=== PATIENT | female | born 1955 | race African-American/Black ===

== ENCOUNTER 2023-01-11 18:14 | Inpatient (IN) | payer OTHER, MEDICAID ==
[~2023-01-11] VITALS: Ht 157.5 cm; Wt 63.0 kg
[2023-01-11 18:50] VITALS: BP_SYST 91
[2023-01-11] MEDS ORDERED: ONDANSETRON HCL 4 MG/2 ML VIAL IVP ONE (19:00)
[2023-01-11] MEDS ORDERED: NACL 0.9% 1,000 ML IV ONE (19:00)
[2023-01-11] MEDS ORDERED: KETOROLAC TROMETHAMINE 30 MG VIAL IVP ONE (19:00)
--- NOTE | 2023-01-11 19:00 | NUR ---
Note beto in ED - 01/11/23 at 2151 by GAYATHRI Placed in room 2 . Placed on cardiac specialist, blood pressure machine and pulse oximeter. To gown for exam. Side rails up. Report given to Yung PALACIOS(reg).
--- NOTE | 2023-01-11 19:00 | NUR ---
Placed in room 2 by Yaniv . Placed on cardiac specialist, blood pressure machine and pulse oximeter. To gown for exam. Side rails up. Report given to Yung PALACIOS(reg).
[2023-01-11 19:38] LABS: HEMATOCRIT 28.7 % (36-48); HEMOGLOBIN 9.3 g/dL (12.0-16.0); MEAN CORPUSCULAR HEMOGLOBIN 25 pg (27-31); MEAN CORPUSCULAR HGB CONC 32 % (32-36); MEAN CORPUSCULAR VOLUME 77 fL (79.0-98.0); PLATELET COUNT (AUTO) 512 K/uL (130-430); RED BLOOD CELL COUNT(AUTO) 3.71 MIL/uL (4.2-6.2); RED CELL DISTRIBUTION WIDTH 18.9 % (9.0-15.0); WHITE BLOOD COUNT (AUTO) 22.9 K/uL (4.8-10.8)
[2023-01-11 19:55] LABS: PROTHROMBIN TIME 10.2 SECS (9.5-12.5)
[2023-01-11 20:08] LABS: ALANINE AMINOTRANSFERASE 10 U/L (12-78); ALBUMIN 2.1 g/dL (3.4-4.8); ANION GAP 9 (5-15); ASPARTATE AMINOTRANSFERASE 22 U/L (10-37); CHLORIDE 101 mmol/L (98-107); CREATININE 1.05 mg/dL (0.55-1.30); GFR AFRICAN AMERICAN 67 mL/min (>90); GLUCOSE 119 mg/dL (70-99); TOTAL BILIRUBIN 0.7 mg/dL (0.0-1.0); UREA NITROGEN, BLOOD 26 mg/dL (8-21)
[2023-01-11 20:12] LABS: CALCIUM 14.2 mg/dL (8.4-11.0)
[2023-01-11 20:20] LABS: BAND % (MANUAL) 1 % (0-6); BASOPHILS % (MANUAL) 0 % (0-2); EOSINOPHILS % (MANUAL) 1 % (0-7); LYMPHOCYTES % (MANUAL) 15 % (20-46); MONOCYTES % (MANUAL) 11 % (0-11)
[2023-01-11] MEDS ORDERED: POTASSIUM CHLORIDE 20 MEQ/PKT PACKET PO ONE (20:30)
--- NOTE | 2023-01-11 20:51 | NUR ---
IVF NS 1000 ml bolus given; followed with Zofran 8 mg IVP, Toradol 30 mg IVP, & KCL 40 meq PO.
[2023-01-11] MEDS ORDERED: PIPERACILLIN/TAZO 3.375/DEX-IS 50 ML IV ONE (21:30)
--- NOTE | 2023-01-11 21:49 | NUR ---
Admit bed requested Patient will be admitted to care of Dr.Singh Ledbetter Admitted to TELE unit. Diagnosis ASPIRATION PNEUMONIA Inpatient (Yes or No) YES Observation (Yes or No) NO Orientation concerns or request close to nursing station (Yes or No) NO Covid Status N/A On vent or bipap NO Isolation requirements NO Needs a sitter NO From Home (Yes or if No enter name of facility) YES Requires Dialysis (Yes or No) NO Med Rec Completed (Yes of No) YES
[2023-01-11] MEDS ORDERED: ZOLPIDEM TARTRATE 5 MG TABLET PO PRN (22:00)
[2023-01-11] MEDS ORDERED: ACETAMINOPHEN 325 MG TABLET PO PRN (22:00)
[2023-01-11] MEDS ORDERED: IPRATROPIUM/ALBUTEROL SULFATE 3 ML AMPUL.NEB (DUONEB) INH PRN (22:00)
[2023-01-11] MEDS ORDERED: POTASSIUM CHLORIDE 20 MEQ TAB.PRT.SR PO PRN (22:00)
[2023-01-11] MEDS ORDERED: MORPHINE 2 MG/ML INJ. SYRINGE IVP PRN (22:00)
[2023-01-11] MEDS ORDERED: DOCUSATE SODIUM 100 MG CAPSULE PO PRN (22:00)
[2023-01-11] MEDS ORDERED: NALOXONE HCL 0.4 MG/ML AMP (NARCAN) IVP PRN ×2 (22:00)
[2023-01-11] MEDS ORDERED: MAGNESIUM SULFATE 50 ML IV PRN (22:00)
[2023-01-11] MEDS ORDERED: MUPIROCIN 2% TOPICAL OINTMENT 22 GM NS PRN (22:00)
[2023-01-11] MEDS ORDERED: FOLI-43 PO (22:09)
[2023-01-11] MEDS ORDERED: IBUP-1970 PO (22:09)
[2023-01-11] MEDS ORDERED: MAGN400T10 PO (22:09)
[2023-01-11] MEDS ORDERED: METH-634 PO (22:09)
[2023-01-11] MEDS ORDERED: SERT50TA PO (22:09)
[2023-01-11] MEDS ORDERED: ACET-2634 PO (22:09)
[2023-01-11] MEDS ORDERED: LIP40 PO (22:09)
[2023-01-11] MEDS ORDERED: HYDR-3698 PO (22:09)
[2023-01-11] MEDS ORDERED: VARE0.5T6 PO (22:09)
--- NOTE | 2023-01-11 22:09 | NUR ---
Medication reconciliation completed with information provided by family member at the bedside. Any prior medication reconciliation on file was reviewed and corrected.
[2023-01-11] MEDS ORDERED: PIPERACILLIN/TAZOBACTAM 3.375 GM/VIAL (ZOSYN) IV ONE (22:47)
[2023-01-11] MEDS: NACL 0.9% 1,000 ML IV SCH (22:52)
--- NOTE | 2023-01-11 23:10 | NUR ---
Patient transferred to Room 106-B in stable condition via kenroy wilson RN.
[2023-01-12] VITALS (7 sets, daily range): BP systolic 84–134
[2023-01-12] MEDS ORDERED: NACL 0.9% 1,000 ML IV ONE
[2023-01-12] MEDS: NACL 0.9% 1,000 ML IV SCH ×2 (01:08→17:44)
--- NOTE | 2023-01-12 03:14 | NUR ---
CONSULTATION PAGED/CALLED Reason for Consultation: HYPERCALCEMIA-LUNG CANCER Person Who was Notified: PARVEZ Consulting Physician: MATTI Flue Dust Laborer Specialty: Ordering Physician: NEVIN
[2023-01-12] MEDS ORDERED: PIPERACILLIN/TAZO 3.375/DEX-IS 50 ML IV SCH (06:00)
[2023-01-12 06:48] LABS: BASOPHILS % (AUTO) 0.2 % (0.0-2.0); EOSINOPHILS # (AUTO) 0.3 K/uL (0.0-0.4); EOSINOPHILS % (AUTO) 1.4 % (0.0-4.0); HEMATOCRIT 23.1 % (36-48); HEMOGLOBIN 7.5 g/dL (12.0-16.0); LYMPHOCYTES # (AUTO) 1.7 K/uL (1.0-5.5); LYMPHOCYTES % (AUTO) 7.9 % (20.5-51.5); MEAN CORPUSCULAR HEMOGLOBIN 25 pg (27-31); MEAN CORPUSCULAR HGB CONC 32 % (32-36); MEAN CORPUSCULAR VOLUME 78 fL (79.0-98.0); MONOCYTES # (AUTO) 1.3 K/uL (0.0-1.0); MONOCYTES % (AUTO) 6.3 % (1.7-9.3); NEUTROPHILS # (AUTO) 17.8 K/uL (1.8-7.7); NEUTROPHILS % (AUTO) 84.2 % (40.0-70.0); PLATELET COUNT (AUTO) 454 K/uL (130-430); RED BLOOD CELL COUNT(AUTO) 2.97 MIL/uL (4.2-6.2); RED CELL DISTRIBUTION WIDTH 18.5 % (9.0-15.0); WHITE BLOOD COUNT (AUTO) 21.1 K/uL (4.8-10.8)
[2023-01-12 07:15] LABS: CALCIUM 12.4 mg/dL (8.4-11.0); CREATININE 0.93 mg/dL (0.55-1.30)
--- NOTE | 2023-01-12 08:00 | NUR ---
Start of shift. Pt resting in bed with daughter at bedside assisting pt with her needs and care. Tele unit attached and intact. IV in LFA intact and patent infusing IVF's well. Bed in low position and bed alarm on. Pt has poor appetite per pt's daughter, attempt will be made to feed pt small amounts slowly. Call light within reach.
[2023-01-12] MEDS ORDERED: POTASSIUM CHLORIDE 40 MEQ, LIDOCAINE JECT 2% PF 100 MG 50 MG in NS 250 ML IV ONE (08:45)
[2023-01-12] MEDS: SERTRALINE HCL 50 MG TABLET PO SCH (08:52)
[2023-01-12] MEDS: FOLIC ACID 1 MG TABLET PO SCH (08:52)
[2023-01-12] MEDS: ATORVASTATIN 20 MG TABLET PO SCH (08:52)
[2023-01-12] MEDS: HEPARIN SODIUM,PORCINE 5,000 UNITS/ML VIAL SUBCUT SCH ×2 (08:58→21:43)
[2023-01-12] MEDS ORDERED: POTASSIUM CHLORIDE 20 MEQ TAB.PRT.SR PO SCH ×2 (09:00→21:45)
[2023-01-12] MEDS: MEROPENEM 1 GM in NS 100 ML IV SCH ×2 (13:35→21:22)
--- NOTE | 2023-01-12 13:40 | NUR ---
Tele Tele unit was dc'd and returned to senior wind turbine technician.
[2023-01-12] MEDS ORDERED: AZITHROMYCIN 500 MG in NS 250 ML IV SCH (14:00)
[2023-01-12] MEDS: AZITHROMYCIN 500 MG in NS 250 ML IV SCH (15:40)
--- NOTE | 2023-01-12 18:20 | NUR ---
End of shift Dr Del Rosario was at bedside to assess pt. Pt has 2-3 family members at bedside trying to get pt to eat a little food on her dinner tray. Pt was checked on q1' and PRN all shift for needs and care. Pt was maintained with safety precautions all shift. IV in LFA intact and patent infusing IVF's well. Pt has been lethargic and sleepy all shift. Call light within reach.
--- NOTE | 2023-01-12 21:15 | NUR ---
Verified with Dr. Hector Ok to give Heparin SC ,with sudden drop of Hemoglobin , Patient is prone for Blood clot , stool OB ordered
[2023-01-13 01:07] VITALS: BP_SYST 97
[2023-01-13] MEDS: NACL 0.9% 1,000 ML IV SCH ×4 (04:46→21:16)
[2023-01-13] MEDS: MEROPENEM 1 GM in NS 100 ML IV SCH ×3 (05:18→21:16)
--- NOTE | 2023-01-13 06:30 | NUR ---
IV RE-INSERTION: Patient accidentally removed the IV cannula. Restarted on left wrist g.22 . Successful after 1 attempt. Resumed current IVF . Will observe for any signs of infiltration.
[2023-01-13 07:00] VITALS: BP_SYST 129
[2023-01-13 08:02] LABS: BASOPHILS # (AUTO) 0.1 K/uL (0.0-0.2); BASOPHILS % (AUTO) 0.5 % (0.0-2.0); EOSINOPHILS # (AUTO) 0.1 K/uL (0.0-0.4); EOSINOPHILS % (AUTO) 0.4 % (0.0-4.0); HEMATOCRIT 23.3 % (36-48); HEMOGLOBIN 7.5 g/dL (12.0-16.0); LYMPHOCYTES # (AUTO) 1.3 K/uL (1.0-5.5); LYMPHOCYTES % (AUTO) 5.3 % (20.5-51.5); MEAN CORPUSCULAR HEMOGLOBIN 25 pg (27-31); MEAN CORPUSCULAR HGB CONC 32 % (32-36); MEAN CORPUSCULAR VOLUME 78 fL (79.0-98.0); MONOCYTES # (AUTO) 1.6 K/uL (0.0-1.0); MONOCYTES % (AUTO) 6.7 % (1.7-9.3); NEUTROPHILS # (AUTO) 21.1 K/uL (1.8-7.7); PLATELET COUNT (AUTO) 479 K/uL (130-430); RED BLOOD CELL COUNT(AUTO) 3.01 MIL/uL (4.2-6.2); RED CELL DISTRIBUTION WIDTH 18.9 % (9.0-15.0); WHITE BLOOD COUNT (AUTO) 24.2 K/uL (4.8-10.8)
--- NOTE | 2023-01-13 08:04 | NUR ---
OPENING NOTES: RECEIVED BEDSIDE SBAR FROM PM SHIFT NURSE, NO S/S OF DISTRESS, NON LABOR BREATHING, BED AT LOW AND LOCKED POSITION, ABLE TO MAKE NEEDS KNOWN, PATIENT RESTING IN BED, WILL CONT TO MONITOR PATIENT PER ORDERS.
[2023-01-13 08:13] LABS: CALCIUM 11.8 mg/dL (8.4-11.0); CREATININE 0.83 mg/dL (0.55-1.30)
[2023-01-13 08:19] LABS: NEUTROPHILS % (AUTO) 87.1 % (40.0-70.0)
[2023-01-13] MEDS: SERTRALINE HCL 50 MG TABLET PO SCH (09:00)
[2023-01-13] MEDS: FOLIC ACID 1 MG TABLET PO SCH (09:00)
[2023-01-13] MEDS: ATORVASTATIN 20 MG TABLET PO SCH (09:00)
[2023-01-13] MEDS: HEPARIN SODIUM,PORCINE 5,000 UNITS/ML VIAL SUBCUT SCH ×2 (09:55→21:15)
--- NOTE | 2023-01-13 09:55 | NUR ---
PATIENT IS VOMETING AT THIS TIME, DR CHINO AT BEDSIDE OK TO HOLD ALL PO MEDS, NEW ORDER:[id number] W/LIDO, IV WILL GIVE ZOFRAN IV
[2023-01-13] MEDS ORDERED: MAGNESIUM SULFATE 50 ML IV ONE (10:00)
[2023-01-13] MEDS ORDERED: POTASSIUM CHLORIDE 20 MEQ TAB.PRT.SR PO ONE (10:00)
[2023-01-13] MEDS: ONDANSETRON HCL 4 MG/2 ML VIAL IVP PRN ×3 (10:05→18:59)
--- NOTE | 2023-01-13 11:13 | NUR ---
TRANSFER CARE TO ASIF PALACIOS PER CHARGE NURSE, PATIENT IS STABLE, FAMILY AT BEDSIDE.
--- NOTE | 2023-01-13 11:30 | NUR ---
PATIENT RECEIVED. NEW IV START INSERTED 22G ON LFA. K RIDER AND MAG RIDER TO BE ADMINISTERED ORDERED. F/C INSERTION WELL COMPLETED BY PLASTIC FABRICATOR. PATIENT VS WNL. PATIENT DENIES N/V. NO C/O PAIN AT THIS TIME. PATIENT CALM AND COOPERATIVE WITH CARE. FAMILY AT BEDSIDE. PATIENT IS NOW RESTING AT THIS TIME.
[2023-01-13] MEDS ORDERED: POTASSIUM CHLORIDE 40 MEQ, LIDOCAINE JECT 2% PF 100 MG 75 MG in NS 250 ML IV ONE (12:00)
[2023-01-13 13:01] VITALS: BP_SYST 129
--- NOTE | 2023-01-13 13:24 | NUR ---
BOBBY CATHETER INSERTED PATIENT TOLERATED WELL. URINE YELLOW, NO SEDIMENT/HEMATURIA NOTED. 200ML URINE IN DRAINAGE BAG. UA COLLECTED USING CLEAN TECHNIQUE AND SENT TO LAB . PATIENT TOLERATED WELL.
--- NOTE | 2023-01-13 14:35 | NUR ---
CM: Discussed dcp transfer pt to [facility] with isela/Mckenzie, said the pt signed up with [facility] and has appointment with Anesthesia Tech/Víctor Yanez on 02/04/23 at 1040 am. Addendum: 01/13/23 at 1510 by Fede Webster RN Late entry: I spoke with Kirby/[facility] transfer ctr # [phone], requesting transfer pt for continuation of care for lung CA. Kirby stated: [facility] is not accepting new inpatient transfer dt over capacity for the past 4 weeks. He advised pt to f/u with dr. Rivero on 02/04. Once the pt dc to home the family can notify [facility] for f/u and for possible move up the appointment . Dr Hector and Madison made aware. Gisselle requested : Home health/PT f/u , DME: [facility] , shower chair, FWW , W/C.
[2023-01-13] MEDS: MICAFUNGIN SODIUM 50 MG in NS 50 ML IV SCH (14:54)
[2023-01-13] MEDS: MORPHINE 2 MG/ML INJ. SYRINGE IVP PRN ×2 (15:11→19:04)
[2023-01-13] MEDS: POTASSIUM CHLORIDE 20 MEQ TAB.PRT.SR PO SCH ×2 (15:12→21:12)
--- NOTE | 2023-01-13 17:00 | NUR ---
Dietitian Recommendations * Regular diet, Ensure TID, Finn BID (supplements yield 1230 kcal/day, 65 gm protein/day) * Encourage good PO intakes * Consider appetite stimulant (Megace) LP, MS, RD Please refer to Nutrition Assessment for details. Addendum: 01/13/23 at [address] Amended: Links added.
[2023-01-13] MEDS: AZITHROMYCIN 500 MG in NS 250 ML IV SCH (17:04)
[2023-01-13 18:08] VITALS: BP_SYST 139
[2023-01-13 20:30] VITALS: BP_SYST 144
--- NOTE | 2023-01-13 21:15 | NUR ---
Patient is awake verbally indicative HOB elevated on room air 02 SAT 95 % Family is here @ the bedside procedures explained comfort measures fall precautions in place BED ALARM is on / .
[2023-01-13 22:10] LABS: BILIRUBIN,URINE NEGATIVE (NEGATIVE); BLOOD, URINE NEGATIVE (NEGATIVE); CLARITY/URINE CLEAR (CLEAR); COLOR,URINE YELLOW (YELLOW); GLUCOSE,URINE NEGATIVE (NEGATIVE); KETONES,URINE NEGATIVE (NEGATIVE); LEUKOCYTE ESTERASE ,URINE NEGATIVE (NEGATIVE); NITRITE, URINE NEGATIVE (NEGATIVE); PROTEIN URINE NEGATIVE (NEGATIVE); UROBILINOGEN,URINE 0.2 (0.2-1.0)
--- NOTE | 2023-01-14 | NUR ---
MORPHINE sulfate 2 mg ivp ADMINISTER for acute general pain / position change encourage also helpful monitor / .
[2023-01-14 00:28] VITALS: BP_SYST 139
[2023-01-14] MEDS: MORPHINE 2 MG/ML INJ. SYRINGE IVP PRN ×4 (02:20→20:18)
--- NOTE | 2023-01-14 05:08 | NUR ---
Hourly Rounding patient Resting is verbally Responsive assist for position change no SOB activity tolerated call finley given to patient / .
[2023-01-14] MEDS: MEROPENEM 1 GM in NS 100 ML IV SCH ×3 (05:18→21:24)
[2023-01-14 07:07] LABS: BASOPHILS # (AUTO) 0.1 K/uL (0.0-0.2); BASOPHILS % (AUTO) 0.4 % (0.0-2.0); EOSINOPHILS # (AUTO) 0.2 K/uL (0.0-0.4); EOSINOPHILS % (AUTO) 0.7 % (0.0-4.0); HEMATOCRIT 23.5 % (36-48); HEMOGLOBIN 7.5 g/dL (12.0-16.0); LYMPHOCYTES # (AUTO) 1.6 K/uL (1.0-5.5); LYMPHOCYTES % (AUTO) 6.5 % (20.5-51.5); MEAN CORPUSCULAR HEMOGLOBIN 25 pg (27-31); MEAN CORPUSCULAR HGB CONC 32 % (32-36); MEAN CORPUSCULAR VOLUME 78 fL (79.0-98.0); MONOCYTES # (AUTO) 1.6 K/uL (0.0-1.0); MONOCYTES % (AUTO) 6.5 % (1.7-9.3); NEUTROPHILS # (AUTO) 21.7 K/uL (1.8-7.7); PLATELET COUNT (AUTO) 498 K/uL (130-430); WHITE BLOOD COUNT (AUTO) 25.3 K/uL (4.8-10.8)
[2023-01-14 07:13] LABS: NEUTROPHILS % (AUTO) 85.9 % (40.0-70.0)
[2023-01-14 07:26] LABS: CALCIUM 11.5 mg/dL (8.4-11.0); CREATININE 0.85 mg/dL (0.55-1.30)
--- NOTE | 2023-01-14 07:35 | NUR ---
Initial note: Report received from Henry. Patient is resting in bed. Family at the bedside. No pain or discomfort at this time. Assessment is done and vital checked. Will continue patient care. Bed in the lowest position and side rails x3 up. Call light in reach and bed alarm is on.
[2023-01-14 08:00] VITALS: BP_SYST 131
[2023-01-14] MEDS: NACL 0.9% 1,000 ML IV SCH ×2 (09:03→15:52)
[2023-01-14] MEDS: POTASSIUM CHLORIDE 20 MEQ TAB.PRT.SR PO SCH ×2 (09:04→21:23)
[2023-01-14] MEDS: ATORVASTATIN 20 MG TABLET PO SCH (09:04)
[2023-01-14] MEDS: FOLIC ACID 1 MG TABLET PO SCH (09:04)
[2023-01-14] MEDS: SERTRALINE HCL 50 MG TABLET PO SCH (09:05)
[2023-01-14] MEDS: HEPARIN SODIUM,PORCINE 5,000 UNITS/ML VIAL SUBCUT SCH ×2 (09:07→21:25)
--- NOTE | 2023-01-14 10:54 | NUR ---
CM: faxed referral to [facility], per Ssui : unable to accept due to no nurse in [facility]. faxed referral to jc Christine, fax # [phone], tel [phone].
[2023-01-14 11:28] VITALS: BP_SYST 133
--- NOTE | 2023-01-14 11:35 | NUR ---
Note: patient is resting in bed. Bed in the lowest position and side rails x3 up. Bed alarm is on. Daughter is at the bedside. No pain or discomfort at this time. Will continue to monitor.
--- NOTE | 2023-01-14 12:04 | NUR ---
Note: patient is awake and daughter is at the bedside. No pain or discomfort at this time. Will continue to monitor. daughter is assisting with the lunch.
[2023-01-14] MEDS: MICAFUNGIN SODIUM 50 MG in NS 50 ML IV SCH (14:37)
[2023-01-14 15:26] VITALS: BP_SYST 120
[2023-01-14] MEDS: AZITHROMYCIN 500 MG in NS 250 ML IV SCH (15:26)
--- NOTE | 2023-01-14 15:30 | NUR ---
P.T. NOTES P.T. EVAL COMPLETED; REFER TO EVAL FOR DETAILS.
[2023-01-14 19:00] VITALS: BP_SYST 129
--- NOTE | 2023-01-14 19:20 | NUR ---
Closing note: reported to Kyler. Patient is awake and alert. Family is at the bedside. No pain or discomfort at this time. Endorse to continue patient care.
[2023-01-14 20:00] VITALS: BP_SYST 129
--- NOTE | 2023-01-14 20:00 | NUR ---
pt.assessed.v/s assessed values wnl.pt.c/o pain iv access intact lt.forearm iv fluids infusing.bueno cath intact. 02-sat%=94%.pt.assessed for cleanliness pt.repositioned.call light/telephone placed w/in access of the pt.
--- NOTE | 2023-01-14 20:30 | NUR ---
pt/family requested medication;pain.morphine:2mg ivp administered.to assess the efficacy of the pain medication per pain mgx protocol.
--- NOTE | 2023-01-14 20:30 | NUR ---
morphine;2mg ivp administered.to assess the efficacy of the pain medication per pain mgx protocol.
--- NOTE | 2023-01-14 21:00 | NUR ---
2100p medications administered.pt.ingested po medications w difficulty.medications crushed mixture apple sauce.
[2023-01-15 00:08] VITALS: BP_SYST 128
[2023-01-15] MEDS: MORPHINE 2 MG/ML INJ. SYRINGE IVP PRN ×5 (00:13→22:17)
--- NOTE | 2023-01-15 00:30 | NUR ---
pt.requested medication;pain.morphine 2mg ivp administered.to assess the efficacy of the pain medication per pain mgx protocol.
--- NOTE | 2023-01-15 00:30 | NUR ---
pt/family requested medication;pain.morphine:2mg ivp administered.to assess the efficacy of the medication;pain per paan mgx protocol.
--- NOTE | 2023-01-15 04:30 | NUR ---
pt.assessed.pt.requested medication;pain morphine;2mg ivp administered.to assess the efficacy of the pain medication per pain mgx protocol.
--- NOTE | 2023-01-15 04:30 | NUR ---
pt/family requested medication;pain.morphine:2mg ivp administered.to assess the efficacy of the medication;pain per pain mgx protocol.
[2023-01-15] MEDS: NACL 0.9% 1,000 ML IV SCH ×2 (05:32→10:34)
[2023-01-15] MEDS: MEROPENEM 1 GM in NS 100 ML IV SCH ×3 (05:33→22:13)
--- NOTE | 2023-01-15 06:30 | NUR ---
pt.assessed.pt.quiescent.o2-sat%=94%@room air.pt requires o2-sat%assessment periodically.o2-sat% fluctuates decreases periodically.evident pt.require a swallow eval.to present issue to day rn to convey to md.
[2023-01-15 08:13] LABS: BASOPHILS % (AUTO) 0.1 % (0.0-2.0); EOSINOPHILS # (AUTO) 0.2 K/uL (0.0-0.4); EOSINOPHILS % (AUTO) 0.6 % (0.0-4.0); HEMATOCRIT 23.4 % (36-48); HEMOGLOBIN 7.4 g/dL (12.0-16.0); LYMPHOCYTES # (AUTO) 1.1 K/uL (1.0-5.5); LYMPHOCYTES % (AUTO) 4.7 % (20.5-51.5); MEAN CORPUSCULAR HEMOGLOBIN 25 pg (27-31); MEAN CORPUSCULAR HGB CONC 32 % (32-36); MEAN CORPUSCULAR VOLUME 77 fL (79.0-98.0); MONOCYTES # (AUTO) 1.4 K/uL (0.0-1.0); MONOCYTES % (AUTO) 5.7 % (1.7-9.3); NEUTROPHILS # (AUTO) 21.4 K/uL (1.8-7.7); PLATELET COUNT (AUTO) 496 K/uL (130-430); RED BLOOD CELL COUNT(AUTO) 3.03 MIL/uL (4.2-6.2); RED CELL DISTRIBUTION WIDTH 18.4 % (9.0-15.0); WHITE BLOOD COUNT (AUTO) 24.2 K/uL (4.8-10.8)
[2023-01-15 08:30] LABS: NEUTROPHILS % (AUTO) 88.9 % (40.0-70.0)
[2023-01-15 08:31] LABS: CALCIUM 11.3 mg/dL (8.4-11.0); CREATININE 0.62 mg/dL (0.55-1.30)
[2023-01-15] MEDS: ONDANSETRON HCL 4 MG/2 ML VIAL IVP PRN ×2 (08:40→12:46)
[2023-01-15] MEDS: ATORVASTATIN 20 MG TABLET PO SCH (08:41)
[2023-01-15] MEDS: POTASSIUM CHLORIDE 20 MEQ TAB.PRT.SR PO SCH (08:41)
[2023-01-15] MEDS: SERTRALINE HCL 50 MG TABLET PO SCH (08:42)
[2023-01-15] MEDS: FOLIC ACID 1 MG TABLET PO SCH (08:49)
[2023-01-15] MEDS: HEPARIN SODIUM,PORCINE 5,000 UNITS/ML VIAL SUBCUT SCH ×2 (09:02→22:12)
[2023-01-15] MEDS ORDERED: POTASSIUM CHLORIDE 20 MEQ/PKT PACKET PO ONE (09:15)
--- NOTE | 2023-01-15 09:53 | NUR ---
CM: Home health: per rEasmo/[facility] , the pt is accepted. He also arranged the DME and to be delivered to pt's home next week.
[2023-01-15] MEDS ORDERED: MILK OF MAGNESIA 30 ML UDC PO PRN (10:30)
--- NOTE | 2023-01-15 10:35 | NUR ---
called and notified dr machado K level. Dr. Machado with new orders. NPO for swallow eval. Krider 40meq with lidocane x1 via IVPB. Milk of magnesia 30ml prn for constipation. responsible alliance party made aware. orders read back noted and carried out.
[2023-01-15 11:17] VITALS: BP_SYST 142
[2023-01-15 11:59] VITALS: BP_SYST 129
--- NOTE | 2023-01-15 14:05 | NUR ---
stool specimen collected and sent to lab.
[2023-01-15] MEDS: MICAFUNGIN SODIUM 50 MG in NS 50 ML IV SCH (14:43)
[2023-01-15] MEDS: LORazepam 2 MG/ML VIAL IVP PRN (14:48)
[2023-01-15 15:15] VITALS: BP_SYST 122
--- NOTE | 2023-01-15 15:41 | NUR ---
>>>PT NOTES<<< HOLD PT PER RN PATIENT IS CURRENTLY SEDATED. WILL FOLLOW UP ON 01/17/23.
[2023-01-15 16:00] VITALS: BP_SYST 126
[2023-01-15] MEDS ORDERED: POTASSIUM CHLORIDE 40 MEQ, LIDOCAINE JECT 2% PF 100 MG 50 MG in NS 250 ML IV ONE (16:00)
--- NOTE | 2023-01-15 16:37 | NUR ---
PT WAS SEEN FOR DYSPHAGIA. PT WAS POCKETING FOR TRIALS OF APPLE SAUCE. DIFFICULTY WITH INITIATION DURING THE SWALLOWING. RECOMMENDATION NPO ALTERNATE MODE OF FEEDING
[2023-01-15] MEDS: D5NS 1,000 ML IV SCH (17:14)
[2023-01-15] MEDS: AZITHROMYCIN 500 MG in NS 250 ML IV SCH (17:14)
[2023-01-15 19:55] VITALS: BP_SYST 128
[2023-01-15] MEDS: POTASSIUM CHLORIDE 20 MEQ/PKT PACKET PO SCH (21:00)
[2023-01-16 00:02] VITALS: BP_SYST 111
[2023-01-16] MEDS: MORPHINE 2 MG/ML INJ. SYRINGE IVP PRN ×3 (02:20→20:15)
[2023-01-16] MEDS: D5NS 1,000 ML IV SCH ×3 (02:30→22:16)
[2023-01-16] MEDS: LORazepam 2 MG/ML VIAL IVP PRN ×2 (03:23→18:41)
[2023-01-16] MEDS: MEROPENEM 1 GM in NS 100 ML IV SCH ×3 (06:47→22:12)
--- NOTE | 2023-01-16 07:00 | NUR ---
OPENING NOTES PATIENT RESTING, BREATHING UNLABORED ON RA. LUNG SOUND CLEARED. NO SIGN OF PAIN, DISTRESS, SOB REPORTED. IVF RUNNING WELLED. BOBBY CATHETER INTACT, URINE CLEARED. PATIENT IS ON NPO DUE TO PATIENT FAILED SWALLOWING EVALUATION. FAMILY AT BEDSIDE. SAFETY PRECAUTIONS IN PLACE. EDUCATE PATIENT AND FAMILY TO USE THE CALL LIGHT. BED LOCKED ON LOWEST POSITION. WILL CONTINUE WITH PLAN OF CARE.
[2023-01-16 07:53] VITALS: BP_SYST 147
[2023-01-16 08:16] LABS: BASOPHILS # (AUTO) 0.1 K/uL (0.0-0.2); BASOPHILS % (AUTO) 0.3 % (0.0-2.0); EOSINOPHILS # (AUTO) 0.2 K/uL (0.0-0.4); EOSINOPHILS % (AUTO) 1.1 % (0.0-4.0); HEMOGLOBIN 7.4 g/dL (12.0-16.0); LYMPHOCYTES # (AUTO) 1.3 K/uL (1.0-5.5); MEAN CORPUSCULAR HEMOGLOBIN 25 pg (27-31); MEAN CORPUSCULAR HGB CONC 32 % (32-36); MEAN CORPUSCULAR VOLUME 77 fL (79.0-98.0); MONOCYTES # (AUTO) 1.2 K/uL (0.0-1.0); MONOCYTES % (AUTO) 5.6 % (1.7-9.3); NEUTROPHILS # (AUTO) 18.7 K/uL (1.8-7.7); PLATELET COUNT (AUTO) 508 K/uL (130-430); RED CELL DISTRIBUTION WIDTH 19.1 % (9.0-15.0); WHITE BLOOD COUNT (AUTO) 21.5 K/uL (4.8-10.8)
[2023-01-16 08:38] LABS: CALCIUM 11.5 mg/dL (8.4-11.0); CREATININE 0.61 mg/dL (0.55-1.30)
--- NOTE | 2023-01-16 08:55 | NUR ---
MD Maria Spoke with MD regarding patient being NPO and how patient has PO medications. Medications were placed on hold. Krider was ordered with Lido due to low potassium level. Orders carried out.
[2023-01-16] MEDS: POTASSIUM CHLORIDE 20 MEQ/PKT PACKET PO SCH (08:56)
[2023-01-16] MEDS: ATORVASTATIN 20 MG TABLET PO SCH (08:56)
[2023-01-16] MEDS: SERTRALINE HCL 50 MG TABLET PO SCH (08:56)
[2023-01-16] MEDS: FOLIC ACID 1 MG TABLET PO SCH (08:56)
[2023-01-16] MEDS ORDERED: POTASSIUM CHLORIDE 40 MEQ, LIDOCAINE JECT 2% PF 100 MG 75 MG in NS 250 ML IV ONE (09:00)
[2023-01-16] MEDS ORDERED: COMMUNICATION ORDER XX ONE (09:00)
[2023-01-16] MEDS: HEPARIN SODIUM,PORCINE 5,000 UNITS/ML VIAL SUBCUT SCH ×2 (09:04→20:17)
--- NOTE | 2023-01-16 11:03 | NUR ---
IV IV line infilitrated and MD called for PICC line placement. MD said ok and will ordered and get consents signed.
--- NOTE | 2023-01-16 11:03 | NUR ---
Nutrition F/U RD reviewed pts current EMR including diet hx, physician notes, nursing notes, pertinent labs/meds/procedures, care trends and care activity. Subjective Information RD s/w pt RN. RD asked if pt getting DC and RN said there is no current DC order. RD asked about feeding plans since DRYING MACHINE OPERATOR recommended NPO; RN reports no plans for feeding at this time. RD rounded to pt room and s/w family member, later in the afternoon. She said that pt would be receiving NGT tomorrow to begin feeding. Family member was hoping this procedure could be moved to today so pt could begin to receive nutrition. RD said it was likely d/t the fact that is a weekend and there may be a staffing issue. Family member reports that pt was very constipated for the last week but yesterday had 3 BM and stomach feels soft, non-distended now. Per EMR review: abd soft, non-distended w/ active bowel sounds; Vaughn: 13; LABs: WBC 21.5 H (improving), H/H 7.4 L/23.0L, K+ 3.2 L, BUN 5 L, BG 115 H, A1C 6.29 WNL, Ca 11.5 H. Pt is not meeting nutritional needs at this time and will likely need alternate nutrition support. Current Diet Order/Nutrition Support NPO x 2 days % PO intake NPO Last BM 01/16/ x 2 Estimated Energy Expenditure (kcals/day) 5300-7722 (30-35 kcal/kg Adj IBW d/t CA w/ ? mets) Estimated Protein Required (g/day) 64-80 (1.2-1.5 gm/kg Adj IBW d/t CA w/ ? mets) Estimated Fluid Required (l/day) 1.6-1.9 (1 ml/kcal/day for GERIAT maintenance) Problem/Etiology/Signs/Symptoms Inadequate nutrient intakes R/T lack of appetite AEB poor appetite, wt loss within past 5 mo, and negligible PO intakes. *ongoing Expected Outcomes/Goals - Monitor appetite and PO intakes w/ goal of pt meeting >75% of estimated nutritional needs, labs trending WNL, normal GI function, and skin integrity/wt maintenance Dietitian Recommendations * Consider alternative nutrition support --Jevity 1.2 @ 60mL/hr (goal) via NGT Provides: 1728 kcal, 80 g PRO, 1162 mL free water Meets: 91% of upper est kcal, 100% of upper est PRO, and 73% of lower est fluid needs * Recommend another swallow eval if pt condition improves Follow up *High risk: f/u in 2-3 days GS, MPH, RD
--- NOTE | 2023-01-16 11:05 | NUR ---
Dietitian Recommendations * Consider alternative nutrition support --Jevity 1.2 @ 60mL/hr (goal) via NGT Provides: 1728 kcal, 80 g PRO, 1162 mL free water Meets: 91% of upper est kcal, 100% of upper est PRO, and 73% of lower est fluid needs * Recommend another swallow eval if pt condition improves GS, MPH, RD Please refer to Nutrition F/U for further details. Thanks!
--- NOTE | 2023-01-16 11:15 | NUR ---
Morphine IM Called MD for a one time order for Morphine IM. will give once available.
--- NOTE | 2023-01-16 11:19 | NUR ---
HIGH ALERT NOTE: Called Dr. Ro back at 1119 identified within the medical roster to verify physician authenticity.
[2023-01-16 11:25] VITALS: BP_SYST 139
[2023-01-16] MEDS ORDERED: MORPHINE 2 MG/ML INJ. SYRINGE IM ONE ×2 (11:30→15:15)
[2023-01-16 11:56] LABS: PROTHROMBIN TIME 10.8 SECS (9.5-12.5)
--- NOTE | 2023-01-16 12:30 | NUR ---
ROUNDING NOTES PATIENT RESTING, BREATHING UNLABORED ON RA. NO PAIN, NO DISTRESS, NO SOB REPORTED. DAUGHTER AT BEDSIDE. ALL NEEDS MET AT THIS TIME. CALL LIGHT WITHIN REACH. BED LOCKED IN LOWEST POSITION. WILL CONTINUE WITH PLAN OF CARE.
[2023-01-16 12:34] VITALS: BP_SYST 147
[2023-01-16] MEDS: MICAFUNGIN SODIUM 50 MG in NS 50 ML IV SCH (14:00)
--- NOTE | 2023-01-16 14:58 | NUR ---
Speak to Dr. Maria over the phone regarding patients pain. Patient still do not have IV excess. approve for IM Morphine.
[2023-01-16 15:30] VITALS: BP_SYST 137
--- NOTE | 2023-01-16 16:00 | NUR ---
PICC LINE PICC line placed on right upper arm. Patent and on infusion pump.
--- NOTE | 2023-01-16 16:41 | NUR ---
ALL ANTIBIOTICS GIVEN LATE DUE TO NO IV ACCESS AVAILABLE.
--- NOTE | 2023-01-16 16:51 | NUR ---
ROUNDING NOTES PATIENT RESTING, BREATHING UNLABORED ON RA. NO PAIN, NO DISTRESS, NO SOB REPORTED. FAMILY AT BEDSIDE. ALL NEEDS MET AT THIS TIME. CALL LIGHT WITHIN REACH. BED LOCKED IN LOWEST POSITION. WILL CONTINUE WITH PLAN OF CARE.
[2023-01-16] MEDS: AZITHROMYCIN 500 MG in NS 250 ML IV SCH (18:40)
--- NOTE | 2023-01-16 18:48 | NUR ---
CLOSING NOTES PATIENT RESTING, BREATHING UNLABORED ON RA. NO PAIN, NO DISTRESS, NO SOB REPORTED. IVF INFUSING WELL. FAMILY AT BEDSIDE. ALL NEEDS MET AT THIS TIME. CALL LIGHT WITHIN REACH. BED LOCKED IN LOWEST POSITION. WILL ENDORSE TO AGRICULTURAL EQUIPMENT SALES MANAGER NURSE.
[2023-01-16 20:00] VITALS: BP_SYST 155
--- NOTE | 2023-01-16 20:05 | NUR ---
Opening notes Pt asleep, easily awakens. VSS, no s/s distress noted. Pt maintained NPO. IVF/antibiotic infusing LOURDES PICC line double lumen. Sheffield catheter draining to gravity with clear, yellow urine. Daughter at bedside. Bed low, locked, siderails up x3, alarm on. To monitor.
[2023-01-17] MEDS: MORPHINE 2 MG/ML INJ. SYRINGE IVP PRN ×5 (00:28→22:47)
[2023-01-17 00:50] VITALS: BP_SYST 143
[2023-01-17] MEDS: D5NS 1,000 ML IV SCH (03:22)
--- NOTE | 2023-01-17 03:30 | NUR ---
Rounds Pt asleep, no s/s distress noted. IVF infuising at ordered rate L. PICC line. Sheffield catheter draining to gravity. Daughter at bedside.
[2023-01-17] MEDS: MEROPENEM 1 GM in NS 100 ML IV SCH ×3 (05:41→22:47)
[2023-01-17 05:42] LABS: BASOPHILS % (AUTO) 0.2 % (0.0-2.0); EOSINOPHILS # (AUTO) 0.4 K/uL (0.0-0.4); EOSINOPHILS % (AUTO) 2.1 % (0.0-4.0); LYMPHOCYTES # (AUTO) 1.5 K/uL (1.0-5.5); LYMPHOCYTES % (AUTO) 7.5 % (20.5-51.5); MEAN CORPUSCULAR HEMOGLOBIN 25 pg (27-31); MEAN CORPUSCULAR HGB CONC 32 % (32-36); MEAN CORPUSCULAR VOLUME 77 fL (79.0-98.0); MONOCYTES # (AUTO) 1.3 K/uL (0.0-1.0); MONOCYTES % (AUTO) 6.5 % (1.7-9.3); NEUTROPHILS # (AUTO) 17.1 K/uL (1.8-7.7); NEUTROPHILS % (AUTO) 83.7 % (40.0-70.0); PLATELET COUNT (AUTO) 447 K/uL (130-430); RED BLOOD CELL COUNT(AUTO) 2.77 MIL/uL (4.2-6.2); RED CELL DISTRIBUTION WIDTH 19.1 % (9.0-15.0); WHITE BLOOD COUNT (AUTO) 20.4 K/uL (4.8-10.8)
[2023-01-17 05:48] LABS: HEMATOCRIT 21.4 % (36-48); HEMOGLOBIN 6.9 g/dL (12.0-16.0)
--- NOTE | 2023-01-17 06:02 | NUR ---
MAK ROONEY,J Addendum: 01/17/23 at 0603 by Za Underwood CNA DR GRIFFITHS YOUTH MINISTRY DIRECTOR
[2023-01-17 06:16] LABS: CALCIUM 10.4 mg/dL (8.4-11.0); CREATININE 0.6 mg/dL (0.55-1.30)
--- NOTE | 2023-01-17 06:55 | NUR ---
Closing notes/Spoke w/ Paged and spoke with Dr. Crow lemus critical H/H, K+, Glucose. Orders received for 1 unit PRBC/see EMAR. Pt's daughter Mckenzie at bedside, informed and consent for Blood transfusion signed. LOURDES PICC line dressing C/D/I. Sheffield catheter draining to gravity with good urine output. Call light within reach. Endorsed care to AM nurse.
[2023-01-17] MEDS ORDERED: POTASSIUM CHLORIDE 40 MEQ in NS 250 ML IV ONE (07:00)
[2023-01-17] MEDS ORDERED: INSULIN REGULAR, HUMAN 100 UNITS/ML, 3 ML VIAL (humuLIN R) SUBCUT PRN (07:00)
[2023-01-17] MEDS ORDERED: GLUCOSE (DEXTROSE) ORAL GEL -Adults PO PRN (07:15)
[2023-01-17] MEDS ORDERED: D5W 1,000 ML IV PRN (07:15)
[2023-01-17] MEDS ORDERED: DEXTROSE 50%-WATER 50 ML DISP.SYRIN IVP PRN (07:15)
--- NOTE | 2023-01-17 07:30 | NUR ---
Morning rounds made, patient is awake and restleess,family at bedside, daughter at bedside. Call light in reach, side rails up x2 for safety. Sheffield cath in place draining yellow urine. Picc line on the right upper arm intact, flushed and blood return observed.
[2023-01-17 08:00] VITALS: BP_SYST 120
[2023-01-17] MEDS ORDERED: POTASSIUM CHLORIDE 40 MEQ, LIDOCAINE JECT 2% PF 100 MG 50 MG in NS 250 ML IV ONE (08:15)
[2023-01-17] MEDS: LORazepam 2 MG/ML VIAL IVP PRN ×2 (08:31→20:39)
[2023-01-17] MEDS: 0.45% NACL 1,000 ML IV SCH (08:54)
--- NOTE | 2023-01-17 08:55 | NUR ---
CONSULTATION PAGED/CALLED Reason for Consultation: GT PLACEMENT Person Who was Notified: MICHAEL Consulting Physician: SY EVANS (DR PANDYA CONSULTING SOLUTION DIRECTOR) Ordering Physician: JENS ROONEY
[2023-01-17] MEDS: HEPARIN SODIUM,PORCINE 5,000 UNITS/ML VIAL SUBCUT SCH ×2 (09:00→20:56)
--- NOTE | 2023-01-17 09:01 | NUR ---
CONSULTATION PAGED/CALLED Reason for Consultation: LUNG CANCER Person Who was Notified: VAL Consulting Physician: KEVON FREDERICK Ordering Physician: JENS ROONEY
--- NOTE | 2023-01-17 09:09 | NUR ---
Heparin Hold: Spoke with ,hold Heparin dose today for patient is for Peg placement.
[2023-01-17 11:25] VITALS: BP_SYST 145
--- NOTE | 2023-01-17 11:37 | NUR ---
Request for transfer sent to [facility] [phone] Dr Bingham accepting MD Request for transfer sent to [facility]-[phone]-Accepting MD Dr Liza Cain -Spoke with Mckenzie-they are on diversion and are not accepting transfers at this time.
--- NOTE | 2023-01-17 12:57 | NUR ---
Referral sent to [facility] [phone]-they will place the patient on their bed board-accepting MD Dr De Jesus Cain
--- NOTE | 2023-01-17 13:07 | NUR ---
RN MEDICALLY CLEARED PATIENT FOR PT TREATMENT, HOWEVER, FAMILY REFUSED PT TREATMENT FOR PATIENT TODAY. WILL TRY AGAIN TOMORROW.
[2023-01-17] MEDS: MICAFUNGIN SODIUM 50 MG in NS 50 ML IV SCH (13:25)
--- NOTE | 2023-01-17 13:43 | NUR ---
Patient accepted at [facility] room 262-[facility]-number for report [phone]- [facility] on will call . Family is delaying transfer-they want blood transfusion completed and they want to wait and see if [facility] will have a bed later.
[2023-01-17 15:12] VITALS: BP_SYST 140
--- NOTE | 2023-01-17 16:30 | NUR ---
BT INITIATION: Consent signed per patient for agreeing to administration of blood. Blood has been type and crossmatched. Blood sent from blood bank.Information on unit of blood checked against patient wristband at bedside by two nurses. All information matches. Patient or responsible libertarian informed of potential complications associated with blood transfusion. Informed of possible transfusion reaction symptoms. Aware of need to notify nurse at once of itching, shortness of breath, flushing, feeling of impending doom, or other symptoms not previously present. Vital signs taken within 5 minutes prior to initiation of transfusion. RN will remain with patient for first 15 minutes of transfusion at which time vital signs will be re-assessed.
--- NOTE | 2023-01-17 17:30 | NUR ---
Patient ok, no reaction noted, Family at bed side.
--- NOTE | 2023-01-17 20:15 | NUR ---
PT NON VERBAL. DIMINISHED LUNG SOUND O2 SAT 94% ON RA, BRUISING NOTED TO FITZ DOUBLE LUMEN PICC RUE SITE CDI. BLOOD STILL INFUSING. F/C DRAINING YELLOW URINE SECURE DEVICE IN PLACE. WEAK PULSES TO BLE. Addendum: 01/17/23 at 2019 by [employer] SUZANNE Doll RN FAMILY AT BED SIDE. Addendum: 01/18/23 at 0726 by Maureen Doll RN RN [id number]: DAUGHTER WANTS TO SPEAK TO THE DOCTOR BEFORE GT PLACEMENT
[2023-01-17 23:47] LABS: TOTAL IRON BIND. CAPACITY 124 ug/dL (250-450)
[2023-01-18] MEDS: LORazepam 2 MG/ML VIAL IVP PRN ×2 (00:59→06:25)
[2023-01-18 01:35] VITALS: BP_SYST 158
[2023-01-18] MEDS: MORPHINE 2 MG/ML INJ. SYRINGE IVP PRN ×2 (03:09→09:51)
[2023-01-18] MEDS: MEROPENEM 1 GM in NS 100 ML IV SCH (05:13)
[2023-01-18] MEDS: 0.45% NACL 1,000 ML IV SCH (05:15)
[2023-01-18 07:16] LABS: BASOPHILS # (AUTO) 0.1 K/uL (0.0-0.2); BASOPHILS % (AUTO) 0.5 % (0.0-2.0); EOSINOPHILS # (AUTO) 0.3 K/uL (0.0-0.4); EOSINOPHILS % (AUTO) 1.2 % (0.0-4.0); HEMATOCRIT 27.6 % (36-48); LYMPHOCYTES # (AUTO) 1.7 K/uL (1.0-5.5); LYMPHOCYTES % (AUTO) 7.2 % (20.5-51.5); MEAN CORPUSCULAR HEMOGLOBIN 26 pg (27-31); MEAN CORPUSCULAR HGB CONC 33 % (32-36); MEAN CORPUSCULAR VOLUME 78 fL (79.0-98.0); MONOCYTES # (AUTO) 1.4 K/uL (0.0-1.0); MONOCYTES % (AUTO) 5.9 % (1.7-9.3); NEUTROPHILS # (AUTO) 20.1 K/uL (1.8-7.7); NEUTROPHILS % (AUTO) 85.2 % (40.0-70.0); PLATELET COUNT (AUTO) 430 K/uL (130-430); RED BLOOD CELL COUNT(AUTO) 3.53 MIL/uL (4.2-6.2); RED CELL DISTRIBUTION WIDTH 18.3 % (9.0-15.0); WHITE BLOOD COUNT (AUTO) 23.6 K/uL (4.8-10.8)
[2023-01-18 07:32] LABS: CALCIUM 10.2 mg/dL (8.4-11.0); CREATININE 0.46 mg/dL (0.55-1.30)
[2023-01-18 08:00] VITALS: BP_SYST 142
--- NOTE | 2023-01-18 08:00 | NUR ---
CRITICAL LAB: joana from Laboratory called with critical lab value K 2.6. Medical record number and patient name verified. Read back of values done. dr desai notified of value. K rider orders given at this time.
[2023-01-18] MEDS ORDERED: KCL 40 mEq in 100 mL (PREMIX) 100 ML IV ONE (09:00)
[2023-01-18] MEDS: HEPARIN SODIUM,PORCINE 5,000 UNITS/ML VIAL SUBCUT SCH (09:36)
--- NOTE | 2023-01-18 09:57 | NUR ---
Spoke w/ transfer ctr at [facility]. They do not know if a bed is available this AM-they will work on bed availability and get back to me. We may have to start new request for a bed for the patient, they will get back to me after they review the case.
[2023-01-18 11:13] VITALS: BP_SYST 157
--- NOTE | 2023-01-18 11:17 | NUR ---
Patient accepted at [facility] room [address] [place] [address]. Number for report [phone]. [facility] to transport at 12:30 PM
[2023-01-18 12:06] LABS: FOLATE (FOLIC ACID) 13.6 ng/mL (>3.0)
--- NOTE | 2023-01-18 13:00 | NUR ---
d/c pt to [facility] via ambulance per order.pt confused,vss daughter melonie hills consented transfer to [place] and given her d/c instruction leaves picc line in right upper arm and bueno catheter for continue of acute care report called and given to Surinder PALACIOS in [place] by phone.
== END 2023-01-18 13:00 | disposition short-term general hospital (02) | DRG 871 ==
LOC: SED 18:14 → STU 21:09 → SMU 01-12 14:35 → STU 01-13 11:15 → SMU 01-17 06:55 → STU 01-17 08:23
PROVIDERS: ADMIT General Practice; ATTEND General Practice
PROC: 30233N1 Transfusion of Nonautologous Red Blood Cells into Peripheral Vein, Percutaneous Approach (ICD-10-PCS; principal; 2023-01-17)
DX: A41.9 Sepsis, unspecified organism (principal); G93.41 Metabolic encephalopathy; J69.0 Pneumonitis due to inhalation of food and vomit; E44.0 Moderate protein-calorie malnutrition; C34.91 Malignant neoplasm of unspecified part of right bronchus or lung; E87.6 Hypokalemia; F10.10 Alcohol abuse, uncomplicated; Y90.9 Presence of alcohol in blood, level not specified; E86.0 Dehydration; F32.A Depression, unspecified; E83.52 Hypercalcemia; Z20.822 Contact with and (suspected) exposure to COVID-19; Z85.118 Personal history of other malignant neoplasm of bronchus and lung; Z68.25 Body mass index [BMI] 25.0-25.9, adult; Z88.0 Allergy status to penicillin; Z79.899 Other long term (current) drug therapy; Z90.710 Acquired absence of both cervix and uterus; Z87.891 Personal history of nicotine dependence; Z86.718 Personal history of other venous thrombosis and embolism; Z63.4 Disappearance and death of family member
CPT/HCPCS: 36415; 70450-TC; 71045; 76376; 80048; 80053; 81003; 82248; 82272; 82378; 82607; 82728; 82746; 83037; 83540; 83550; 83605; 83735; 83880; 84132; 84484; 85007; 85025; 85027; 85610-TC; 85730-TC; 86480; 86606; 86738; 86886; 86900; 86901; 86920; 87040; 87081; 87305; 87449; 87497; 92610-GN; 93005; 93970; 96361; 96374; 97112-GP; 97116-GP; 99291; G0378; J0456; J1644; J1885; J2060; J2185; J2270; J2405; J2543; J3475; J3480; J7050; P9021